=== PATIENT | female | born 1945 | race Two or more races ===

== ENCOUNTER 2023-04-29 09:16 | Outpatient (CLI) | payer OTHER | END 2023-04-29 09:23 | disposition home or self-care (01) | LOC: RX STUDY 09:16 | PROVIDERS: ATTEND Internal Medicine Gastroenterology | DX: K21.00 Gastro-esophageal reflux disease with esophagitis, without bleeding (principal); R13.10 Dysphagia, unspecified ==

== ENCOUNTER → 2024-11-24 07:20 | Outpatient (CLI) | payer OTHER | END | disposition home or self-care (01) | LOC: NUCLEAR 07:00 | DX: K31.84 Gastroparesis (principal) | CPT/HCPCS: 78264; A9541 ==